=== PATIENT | female | born 1995 | race Caucasian/White ===

== ENCOUNTER 2019-01-25 18:48 | Emergency (ER) | payer OTHER ==
[2019-01-25 19:41] VITALS: BP 112/62
--- NOTE | 2019-01-25 19:52 | UC ---
Ear Complaint HPI - HPI Summary HPI Summary: C/O congestion, with right ear pain x 2 days. Slight cough. - History of Current Complaint Chief Complaint: UCGeneralIllness Stated Complaint: R EAR COMPLAINT Time Seen by Provider: 01/25/19 19:44 Hx Obtained From: Patient Hx Last Menstrual Period: 01/21/19 ?: No Onset/Duration: Sudden Onset, Lasting Days - 3, Worse Since - last 2 days Severity Initially: Mild Severity Currently: Moderate Pain Intensity: 7 Associated Signs/Symptoms: Positive: Hearing Loss, URI Symptoms Related History: Seasonal Allergies - Allergies/Home Medications Allergies/Adverse Reactions: Allergies Allergy/AdvReac Type Severity Reaction Status Date / Time Penicillins Allergy Unknown Verified 01/25/19 19:42 Reaction Details Home Medications: Home Medications Methylphenidate ER TAB* [Concerta ER TAB*] 18 mg PO DAILY 01/25/19 [History Confirmed 01/25/19] PMH/Surg Hx/FS Hx/Imm Hx Previously Healthy: Yes - Surgical History Surgical History: Yes Surgery Procedure, Year, and Place: t/a, nasal turbinate scraped 02/2016 [facility] - Family History Known Family History: Negative: Cardiac Disease, Hypertension, Diabetes - Social History Occupation: Student Lives: Dormitory/Roommates Alcohol Use: Occasionally Substance Use Type: Marijuana Substance Use Comment - Amount & Last Used: yesterday wax version Smoking Status (MU): Never Smoked Tobacco Review of Systems All Other Systems Reviewed And Are Negative: Yes Constitutional: Positive: Chills ENT: Positive: Sore Throat, Ear Ache, Nasal Discharge Respiratory: Positive: Cough Is Patient Immunocompromised?: No Physical Exam Triage Information Reviewed: Yes Appearance: No Pain Distress, Well-Nourished, Ill-Appearing - mild Vital Signs: Initial Vital Signs Temp 98.0 F 01/25/19 19:39 Pulse 94 01/25/19 19:39 Resp 16 01/25/19 19:39 BP 112/62 01/25/19 19:39 Pulse Ox 100 01/25/19 19:39 Vital Signs Reviewed: Yes Eyes: Positive: Conjunctiva Clear ENT: Positive: Nasal congestion - with URI and allergic congestion., TMs normal - , TM red - injection Neck exam: Normal Respiratory Exam: Normal Cardiovascular Exam: Normal Musculoskeletal Exam: Normal Neurological Exam: Normal Psychological Exam: Normal Skin Exam: Normal Ear Complaint Course/Dx - Differential Dx/Diagnosis Differential Diagnosis/HQI/PQRI: Otitis Externa, Otitis Media, URI Provider Diagnosis: Upper respiratory infection with cough and congestion, Allergic rhinitis, Dysfunction of right eustachian tube Discharge - Sign-Out/Discharge Documenting (check all that apply): Patient Departure All imaging exams completed and their final reports reviewed: No Studies - Discharge Plan Condition: Stable Disposition: HOME Patient Education Materials: Upper Respiratory Infection (ED) Referrals: No Primary Care Phys,NOPCP [Primary Care Provider] - Additional Instructions: NEILMED SINUS RINSE: CHECK OUT AT [facility] Saline nasal wash helps with mucous, allergies and congestion. It can be used up to twice a day or only as needed. Use lukewarm tap water. It does not have to be sterilized or distilled water. Do 1/3 on each side and snort out of both nostrils. Repeat the process with 1/6 of the bottle on each side with snorting in between to finish the solution in the bottle NASAL SPRAYS AND DROPS: Afrin in the PUMP/ MIST bottle (Get generic 12 hours nasal decongestant spray). Tilt your head down and look at the floor while doing a strong sniff with the spray. Decongestant nasal sprays and drops often give dramatic relief from congestion. They are often recommended for patients with sinus infection to assist with sinus drainage. Persons with high blood pressure should consult the doctor before using these nasal sprays. Afrin and Delmer-Synephrine are common [id number] preparations. They should not be used for more than five days, as "rebound" congestion can occur - - the congestion flares as the drug wears off. A way of dealing with this rebound congestion problem is to medicate only one nostril each time, allowing the other nostril to recover from the medicine' s effects. When you no longer need the drug during the day, spray only one nostril each night. This helps you sleep well without severe rebound congestion. Call the doctor if you develop severe headache, palpitations, or chest pain. - Billing Disposition and Condition Condition: STABLE Disposition: Home
== END 2019-01-25 20:10 | disposition home or self-care (01) ==
LOC: UCCORT 18:48
DX: J06.9 Acute upper respiratory infection, unspecified (principal); J30.9 Allergic rhinitis, unspecified; H69.91 Unspecified Eustachian tube disorder, right ear; Z88.0 Allergy status to penicillin
CPT/HCPCS: 99211; G0463